=== PATIENT | female | born 1955 | race Caucasian/White ===

== ENCOUNTER → 2019-05-08 07:54 | Outpatient (CLI) | payer OTHER, SELFPAY ==
[2019-05-08 08:46] LABS: Add Manual Diff / Slide Review NO; Basophils Absolute Auto 100 /uL (0-100); Basophils Percent Auto 1.1 % (0-2); Eosinophils Absolute Auto 100 /uL (0-450); Eosinophils Percent Auto 1.8 % (2-4); Hematocrit 42.6 % (36-46); Hemoglobin 14.5 g/dL (12.0-16.0); Lymphocytes Absolute Auto 1500 /uL (1100-4500); Lymphocytes Percent Auto 30.8 % (25-40); Mean Corpuscular Hemoglobin 30.3 PG (26-34); Monocytes Absolute Auto 400 /uL (0-900); Monocytes Percent Auto 8.5 % (3-14); Neutrophils Absolute Auto 2800 /uL (1500-7000); Neutrophils Percent Auto 57.8 % (50-75); Platelet Count 316 X10^3/uL (150-400); Red Blood Cell Count 4.78 X10^6/uL (4.0-5.2); Red Cell Distribution Width 13.6 % (11.6-14.8); White Blood Cell Count 4.8 X10^3/uL (4.5-11.0)
[2019-05-08 09:23] LABS: Alanine Aminotransferase 17 IU/L (<35); Albumin 4.3 g/dL (3.5-5.0); Albumin Globulin Ratio 1.8 (1.0-2.8); Alkaline Phosphatase 40 U/L (38-126); Aspartate Aminotransferase 23 IU/L (14-36); BUN Creatinine Ratio 23.3 (6-22); Bilirubin Total 0.4 mg/dL (0.2-1.3); Blood Urea Nitrogen 14 mg/dL (7-17); Calcium 9.7 mg/dL (8.4-10.2); Carbon Dioxide 27 mmol/L (22-32); Chloride 103 mmol/L (98-107); Cholesterol 243 mg/dL (140-199); Estimated Glomerular Filt Rate > 60.0 mL/min (>60); Globulin 2.4 g/dL (1.7-4.1); Glucose 91 mg/dL (80-110); HDL Cholesterol 78 mg/dL (40-60); HEMOLYSIS < 15 (0-50); LDL Cholesterol Calculated 151 mg/dL (<100); Magnesium 2.1 mg/dL (1.6-2.3); Potassium 4.5 mmol/L (3.4-5.1); Sodium 137 mmol/L (137-145); Total Protein 6.7 g/dL (6.3-8.2); Triglycerides 72 mg/dL (35-150)
[2019-05-08 09:51] LABS: Thyroid Stimulating Hormone 2.28 uIU/mL (0.47-4.68)
[2019-05-10 13:35] LABS: Ceruloplasmin 25 mg/dL (18-53)
[2019-05-19 08:24] LABS: Chromium, Plasma 0.5 mcg/L (< 1.3)
== END ==
PROVIDERS: Visit Provider Internal Medicine
DX: R79.0 Abnormal level of blood mineral (principal); E83.00 Disorder of copper metabolism, unspecified
CPT/HCPCS: 36415; 80053; 80061; 82108; 82390; 82495; 82525; 83655; 83735; 83825; 84443; 85025

== ENCOUNTER → 2022-03-06 10:01 | Outpatient (CLI) | payer MEDICARE, SELFPAY ==
--- NOTE | 2022-03-06 | DI.RAD.S_ITS ---
PROCEDURE: XR DEXA AXIAL SKELETON INDICATIONS: Asymptomatic menopausal state COMPARISON: None. FINDINGS: This blank DEXA report has been sent in error by the PACS system. The correct and complete report will be forthcoming in 1-2 days. Thank you for your patience and understanding. Dictated by: Cristopher Lopez M.D. on 03/06/2022 at 15:52 Approved by: Cristopher Lopez M.D. on 03/06/2022 at 15:53
== END ==
PROVIDERS: PCP Family Medicine; Referring Provider Nurse Practitioner Family; Visit Provider Nurse Practitioner Family
DX: Z78.0 Asymptomatic menopausal state (principal); Z13.820 Encounter for screening for osteoporosis; M85.851 Other specified disorders of bone density and structure, right thigh
CPT/HCPCS: 77080